=== PATIENT | male | born 1965 | race Two or more races ===

== ENCOUNTER 2017-09-08 11:15 | Emergency (ER) | payer OTHER ==
[~2017-09-08] VITALS: Ht 175.3 cm; Wt 99.8 kg
[~2017-09-08 11:15] MED LIST: BENICAR20 MG; PAXIL CR25 MG
== END 2017-09-08 14:47 | disposition home or self-care (01) ==
LOC: ER 11:15
DX: M25.561 Pain in right knee (principal)

== ENCOUNTER → 2017-09-11 | Outpatient (CLI) | payer OTHER | END | disposition home or self-care (01) | LOC: MRI 11:18 | DX: M25.561 Pain in right knee (principal) | CPT/HCPCS: 73721 ==

== ENCOUNTER 2017-09-23 12:53 | Outpatient (CLI) | payer OTHER | END 2017-09-23 12:59 | disposition home or self-care (01) | LOC: RAD 12:53 | DX: M25.561 Pain in right knee (principal) ==

== ENCOUNTER → 2020-02-08 | Outpatient (CLI) | payer OTHER | END | disposition home or self-care (01) | LOC: MRI 09:36 | PROVIDERS: ATTEND Orthopaedic Surgery | DX: M25.561 Pain in right knee (principal); M25.562 Pain in left knee | CPT/HCPCS: 73721 ==